=== PATIENT | female | born 1965 | race Caucasian/White ===

== ENCOUNTER 2017-05-24 08:44 | Emergency (ER) | payer SELFPAY ==
[2017-05-24 09:10] VITALS: BP 113/75; TEMP 96.9; O2SAT 96
[2017-05-24] MEDS ORDERED: KETOROLAC TROMETHAMINE INJ 30 MG/ML VIAL IM ONE (09:20)
--- NOTE | 2017-05-24 09:23 | ED.PDOC ---
History of Present Illness - General Chief Complaint: Back Pain or Injury Stated Complaint: Low back discomfort Time Seen by Provider: 05/24/17 08:45 Source: patient Exam Limitations: no limitations - History of Present Illness Initial Comments: the patient is a 52-year-old female presenting to the emergency room secondary to low back pain more on the right than the left. Pain has been present and progressive for the last 3 weeks. 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 She does have a history of mild sciatica No recent injuries. No neurological deficits. no urinary symptoms. Timing/Duration: constant, getting worse Severity: moderate Improving Factors: immobilization Worsening Factors: movement Associated Symptoms: denies symptoms Allergies/Adverse Reactions: Allergies Sulfa Antibiotics Allergy (Mild, Verified 05/24/17 09:04) Unknown Budesonide [From Symbicort] Allergy (Verified 05/24/17 09:12) Other Caused blisters in her mouth Formoterol [From Symbicort] Allergy (Verified 05/24/17 09:12) Other Caused blisters in her mouth Home Medications: Ambulatory Orders Aspirin [Aspirin EC] 81 mg PO BEDTIME 08/07/14 Celecoxib [Celebrex] 200 mg PO DAILY 08/07/14 DULoxetine HCL [Cymbalta] 90 mg PO DAILY 08/07/14 Estradiol [Estrace] 1 mg PO DAILY 08/07/14 Lisinopril & Hydrochlorothiazi [Zestoretic 10-12.5 mg] 1 tab PO DAILY 08/07/14 Pregabalin [Lyrica] 150 mg PO BEDTIME 08/07/14 Mag Oxide & Mag Gluconate [Magnesium] 1 tab PO DAILY 03/11/15 Nitrofurantoin Cap [Macrodantin Cap] 100 mg PO DAILY 03/11/15 [place]-3 Fatty Acids [Fish Oil] 1 cap PO DAILY 03/11/15 Cyclobenzaprine HCl [Flexeril] 5 mg PO TID PRN #30 tab 05/24/17 Famotidine [Pepcid Tab] 20 mg PO DAILY PRN 05/24/17 Zolpidem Tartrate [Ambien] 10 mg PO BEDTIME 05/24/17 predniSONE [Prednisone] 20 mg PO DAILY #5 tab 05/24/17 Review of Systems - Review of Systems Review of Systems: 05/24/17 09:23 for new symptoms only. Constitutional: States: no symptoms reported EENTM: States: no symptoms reported Respiratory: States: no symptoms reported Cardiology: States: no symptoms reported Gastrointestinal/Abdominal: States: no symptoms reported Genitourinary: States: no symptoms reported Musculoskeletal: States: back pain Skin: States: no symptoms reported Neurological: States: no symptoms reported Endocrine: States: no symptoms reported Hematologic/Lymphatic: States: no symptoms reported All other Systems: No Change from Baseline Past Medical History (General) - Patient Medical History Hx Seizures: No Hx Stroke: No Hx Asthma: Yes Hx of COPD: No Hx Cardiac Disorders: No Hx Congestive Heart Failure: No Hx Pacemaker: No Hx Hypertension: Yes Hx Diabetes: No Hx MRSA: No Surgical History: appendectomy, Hysterectomy, other - Vaccination History Hx Influenza Vaccination: Yes - 2013 Hx Pneumococcal Vaccination: Yes - unkown date - Social History Hx Tobacco Use: No Hx Alcohol Use: No Hx Substance Use: No Hx Physical Abuse: No Hx Emotional Abuse: No Family Medical History - Family History Father Living Status: Hx Family Stroke: Yes Hx Cardiac Disease: Yes Hx Family;Other: dementia, encephalopathy Mother Name: mother Age (years): 73 Living Status: Still Living Hx Family Asthma: No Hx Family Congestive Heart Failure: No Hx Family Hypertension: Yes - unknown Hx Family Stroke: No Hx Cardiac Disease: No Hx Family Diabetes: Yes - unknown Hx Family Cancer: No Physical Exam - Physical Exam General Appearance: Alert, Comfortable, No apparent distress Eye Exam: bilateral normal Ears, Nose, Throat: hearing grossly normal, normal ENT inspection Neck: full range of motion, supple Respiratory: lungs clear, normal breath sounds, no respiratory distress, no accessory muscle use Cardiovascular/Chest: normal peripheral pulses, no edema, other - regular rate Peripheral Pulses: radial,right: 2+, radial,left: 2+, dorsalis pedis,right: 2+, dorsalis pedis,left: 2+ Gastrointestinal/Abdominal: soft Rectal Exam: deferred Back Exam: no vertebral tenderness, other - the patient has discomfort palpation adjacent to L4-S1 on the right. There is some palpable muscle spasm. 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 She does have a history of some DJD of the lumbar spine with associated sciatica. The patient is already taking medications for nerve pain and an anti-inflammatory. We will add prednisone for 5 days and a mild muscle relaxer. She does need to do stretching exercises. She needs to apply topical heat. She needs to follow-up with her primary care doctor early next week. ER warnings were given. Most of the pain is localized at this time with minimal evidence of true sciatica at this time. Departure - Departure Clinical Impression: Low back pain Qualifiers: Chronicity: chronic Back pain laterality: right Sciatica presence: without sciatica Qualified Code(s): M54.5 - Low back pain; G89.29 - Other chronic pain Disposition: Discharge to Home or Self Care Condition: Fair Departure Forms: ED Discharge - Pt. Copy, Patient Portal Self Enrollment Diet: regular diet Activity: increase activity as tolerated Referrals: Prosper Dillard MD [Primary Care Provider] - 1-5 Days Prescriptions: Cyclobenzaprine HCl [Flexeril] 5 mg PO TID PRN #30 tab PRN Reason: Muscle Spasms predniSONE [Prednisone] 20 mg PO DAILY #5 tab Home Medications: Ambulatory Orders Aspirin [Aspirin EC] 81 mg PO BEDTIME 08/07/14 Celecoxib [Celebrex] 200 mg PO DAILY 08/07/14 DULoxetine HCL [Cymbalta] 90 mg PO DAILY 08/07/14 Estradiol [Estrace] 1 mg PO DAILY 08/07/14 Lisinopril & Hydrochlorothiazi [Zestoretic 10-12.5 mg] 1 tab PO DAILY 08/07/14 Pregabalin [Lyrica] 150 mg PO BEDTIME 08/07/14 Mag Oxide & Mag Gluconate [Magnesium] 1 tab PO DAILY 03/11/15 Nitrofurantoin Cap [Macrodantin Cap] 100 mg PO DAILY 03/11/15 [place]-3 Fatty Acids [Fish Oil] 1 cap PO DAILY 03/11/15 Cyclobenzaprine HCl [Flexeril] 5 mg PO TID PRN #30 tab 05/24/17 Famotidine [Pepcid Tab] 20 mg PO DAILY PRN 05/24/17 Zolpidem Tartrate [Ambien] 10 mg PO BEDTIME 05/24/17 predniSONE [Prednisone] 20 mg PO DAILY #5 tab 05/24/17 Additional Instructions: the patient is a 52-year-old female presenting with paraspinal pain on the right adjacent to L4-S1. She does have a history of some DJD of the lumbar spine with associated sciatica. The patient is already taking medications for nerve pain and an anti-inflammatory. We will add prednisone for 5 days and a mild muscle relaxer. She does need to do stretching exercises. She needs to apply topical heat. She needs to follow-up with her primary care doctor early next week. ER warnings were given. Most of the pain is localized at this time with minimal evidence of true sciatica at this time.
== END 2017-05-24 09:55 | disposition home or self-care (01) ==
LOC: ER 08:44
DX: G89.29 Other chronic pain (principal); M54.5 Low back pain; Z79.82 Long term (current) use of aspirin; Z79.899 Other long term (current) drug therapy

== ENCOUNTER 2017-07-01 01:38 | Emergency (ER) | payer SELFPAY ==
[2017-07-01] MEDS ORDERED: ALBUTEROL SULFATE 2.5 MG/3 ML VIAL NEB ONE ×2 (01:42→01:44)
[2017-07-01 01:49] VITALS: TEMP 99.6
[2017-07-01] MEDS ORDERED: predniSONE 20 MG TAB PO ONE (01:50)
[2017-07-01] MEDS ORDERED: ALPRAZolam 0.25 MG TAB PO ONE (01:56)
--- NOTE | 2017-07-01 02:23 | RAD ---
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 No pneumothorax or pleural effusion. The cardiomediastinal silhouette is within normal limits. Impression: No acute findings. Electronically signed by: Khoi Kwan MD 07/01/2017 2:22 AM PLATER APPRENTICE
[2017-07-01] MEDS ORDERED: IPRATROPIUM/ALBUTEROL 3 ML VIAL NEB ONE ×2 (02:36→02:37)
[2017-07-01 04:03] VITALS: O2SAT 94
--- NOTE | 2017-07-01 04:20 | ED.PDOC ---
History of Present Illness - General Chief Complaint: Respiratory Problem Stated Complaint: SOB, asthma attack Time Seen by Provider: 07/01/17 01:44 Source: patient Exam Limitations: no limitations - History of Present Illness Initial Comments: The patient is a 52-year-old female presenting to the emergency room secondary to fairly abrupt onset shortness of breath when she woke up this morning at 1 AM. She does have a history of asthma. She did state that she was wheezing. She does have some seasonal allergies. No fever. Last week she had a upper respiratory tract infection. She has a mild cough that is nonproductive. She is very anxious. Timing/Duration: 1 hour Severity: moderate Improving Factors: nothing Worsening Factors: nothing Associated Symptoms: shortness of breath Allergies/Adverse Reactions: Allergies Sulfa Antibiotics Allergy (Mild, Verified 07/01/17 01:50) Unknown Budesonide [From Symbicort] Allergy (Verified 07/01/17 01:50) Other Caused blisters in her mouth Formoterol [From Symbicort] Allergy (Verified 07/01/17 01:50) Other Caused blisters in her mouth Home Medications: Ambulatory Orders Aspirin [Aspirin EC] 81 mg PO BEDTIME 08/07/14 Celecoxib [Celebrex] 200 mg PO DAILY 08/07/14 DULoxetine HCL [Cymbalta] 90 mg PO DAILY 08/07/14 Estradiol [Estrace] 1 mg PO DAILY 08/07/14 Lisinopril & Hydrochlorothiazi [Zestoretic 10-12.5 mg] 1 tab PO DAILY 08/07/14 Pregabalin [Lyrica] 150 mg PO BEDTIME 08/07/14 Mag Oxide & Mag Gluconate [Magnesium] 1 tab PO DAILY 03/11/15 Nitrofurantoin Cap [Macrodantin Cap] 100 mg PO DAILY 03/11/15 [place]-3 Fatty Acids [Fish Oil] 1 cap PO DAILY 03/11/15 Cyclobenzaprine HCl [Flexeril] 5 mg PO TID PRN #30 tab 05/24/17 Famotidine [Pepcid Tab] 20 mg PO DAILY PRN 05/24/17 Zolpidem Tartrate [Ambien] 10 mg PO BEDTIME 05/24/17 predniSONE [Prednisone] 20 mg PO DAILY #5 tab 05/24/17 Albuterol Inhaler [Ventolin Hfa Inhaler] 2 puff INH Q4HR PRN #1 inh 07/01/17 Review of Systems - Review of Systems Constitutional: States: no symptoms reported EENTM: States: no symptoms reported Respiratory: States: cough, short of breath, wheezing Cardiology: States: no symptoms reported Gastrointestinal/Abdominal: States: no symptoms reported Genitourinary: States: no symptoms reported Musculoskeletal: States: no symptoms reported Skin: States: no symptoms reported Neurological: States: anxiety Endocrine: States: no symptoms reported All other Systems: No Change from Baseline Past Medical History (General) - Patient Medical History Hx Seizures: No Hx Stroke: No Hx Dementia: No Hx Asthma: Yes Hx of COPD: No Hx Cardiac Disorders: No Hx Congestive Heart Failure: No Hx Pacemaker: No Hx Hypertension: Yes Hx Thyroid Disease: No Hx Diabetes: No Hx Gastroesophageal Reflux: No Hx Renal Disease: No Hx Cancer: No Hx of HIV: No Hx Hepatitis C: No Hx MRSA: No Surgical History: appendectomy, Hysterectomy - Vaccination History Hx Tetanus, Diphtheria Vaccination: No Hx Influenza Vaccination: No Hx Pneumococcal Vaccination: Yes - Social History Hx Tobacco Use: No Hx Alcohol Use: No Hx Substance Use: No Hx Physical Abuse: No Hx Emotional Abuse: No Family Medical History - Family History Father Living Status: Hx Family Stroke: Yes Hx Cardiac Disease: Yes Hx Family;Other: dementia, encephalopathy Mother Name: mother Age (years): 73 Living Status: Still Living Hx Family Asthma: No Hx Family Congestive Heart Failure: No Hx Family Hypertension: Yes - unknown Hx Family Stroke: No Hx Cardiac Disease: No Hx Family Diabetes: Yes - unknown Hx Family Cancer: No Physical Exam - Physical Exam General Appearance: Alert, Anxious, No apparent distress Eye Exam: bilateral normal Ears, Nose, Throat: hearing grossly normal, normal ENT inspection, normal pharynx Neck: full range of motion, supple Respiratory: lungs clear, normal breath sounds, no respiratory distress, no accessory muscle use Cardiovascular/Chest: normal peripheral pulses, regular rate, rhythm, no edema Peripheral Pulses: radial,right: 2+, radial,left: 2+ Gastrointestinal/Abdominal: non tender, soft Rectal Exam: deferred Back Exam: no CVA tenderness, no vertebral tenderness Extremity: normal range of motion, non-tender, normal inspection, no pedal edema , normal capillary refill 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, alert, oriented x 3, other - very anxious Skin Exam: normal color Comments: Vital Signs - 24 hr 07/01/17 07/01/17 07/01/17 01:40 01:44 01:46 Temperature 99.6 F Pulse Rate 102 H Pulse Rate [ 115 H 115 H monitor] Respiratory 20 20 18 Rate Blood Pressure 155/70 [Left Arm] O2 Sat by Pulse 100 100 Oximetry 07/01/17 07/01/17 07/01/17 02:00 02:38 03:00 Temperature Pulse Rate 106 H Pulse Rate [ 109 H 102 H monitor] Respiratory 18 17 18 Rate Blood Pressure 123/69 125/60 [Left Arm] O2 Sat by Pulse 99 100 98 Oximetry 07/01/17 04:00 Temperature Pulse Rate Pulse Rate [ 106 H monitor] Respiratory 16 Rate Blood Pressure 119/56 [Left Arm] O2 Sat by Pulse 94 L Oximetry Progress - Progress Progress: 07/01/17 04:20 the patient is a 52-year-old female presenting with an early asthma exacerbation likely worsened by anxiety. She did respond to breathing treatments and a dose of prednisone here. The patient will be written for an albuterol rescue inhaler for as needed use. She does need to follow up with primary care doctor later this coming week. ER warnings were given for any worsening. - Results/Orders Results/Orders: rapid flu was negative. Chest x-ray shows no acute pathology. Departure - Departure Clinical Impression: Asthma with exacerbation Qualifiers: Asthma severity: mild intermittent Qualified Code(s): J45.21 - Mild intermittent asthma with (acute) exacerbation Disposition: Discharge to Home or Self Care Condition: Fair Departure Forms: ED Discharge - Pt. Copy, Patient Portal Self Enrollment Instructions: DI for Asthma -- Adult Diet: regular diet Activity: increase activity as tolerated Referrals: Prosper Dillard MD [Primary Care Provider] - 1-5 Days Prescriptions: Albuterol Inhaler [Ventolin Hfa Inhaler] 2 puff INH Q4HR PRN #1 inh PRN Reason: Shortness Of Breath Home Medications: Ambulatory Orders Aspirin [Aspirin EC] 81 mg PO BEDTIME 08/07/14 Celecoxib [Celebrex] 200 mg PO DAILY 08/07/14 DULoxetine HCL [Cymbalta] 90 mg PO DAILY 08/07/14 Estradiol [Estrace] 1 mg PO DAILY 08/07/14 Lisinopril & Hydrochlorothiazi [Zestoretic 10-12.5 mg] 1 tab PO DAILY 08/07/14 Pregabalin [Lyrica] 150 mg PO BEDTIME 08/07/14 Mag Oxide & Mag Gluconate [Magnesium] 1 tab PO DAILY 03/11/15 Nitrofurantoin Cap [Macrodantin Cap] 100 mg PO DAILY 03/11/15 [place]-3 Fatty Acids [Fish Oil] 1 cap PO DAILY 03/11/15 Cyclobenzaprine HCl [Flexeril] 5 mg PO TID PRN #30 tab 05/24/17 Famotidine [Pepcid Tab] 20 mg PO DAILY PRN 05/24/17 Zolpidem Tartrate [Ambien] 10 mg PO BEDTIME 05/24/17 predniSONE [Prednisone] 20 mg PO DAILY #5 tab 05/24/17 Albuterol Inhaler [Ventolin Hfa Inhaler] 2 puff INH Q4HR PRN #1 inh 07/01/17 Additional Instructions: the patient is a 52-year-old female presenting with an early asthma exacerbation likely worsened by anxiety. She did respond to breathing treatments and a dose of prednisone here. The patient will be written for an albuterol rescue inhaler for as needed use. She does need to follow up with primary care doctor later this coming week. ER warnings were given for any worsening.
[2017-07-01 04:25] VITALS: BP 124/50
== END 2017-07-01 04:29 | disposition home or self-care (01) ==
LOC: ER 01:38
DX: J45.21 Mild intermittent asthma with (acute) exacerbation (principal); I10 Essential (primary) hypertension
CPT/HCPCS: 71046; 87804; 94640; J7512; J7611; J7620